=== PATIENT | male | born 1945 | race Caucasian/White ===

== ENCOUNTER 2024-03-02 05:57 | Day surgery (SDC) | payer OTHER ==
[2024-02-23 14:45] LABS: BILIRUBIN,URINE NEGATIVE (Neg); CLARITY,URINE CLEAR (Clear); COLOR,URINE YELLOW (Yellow); GLUCOSE, URINE NEGATIVE (Neg); KETONES,URINE NEGATIVE (Neg); LEUKOCYTE ESTERASE ,URINE NEGATIVE (Neg); NITRITES, URINE NEGATIVE (Neg); OCCULT BLOOD,URINE NEGATIVE (Neg); PH,URINE 5.5 (4.8-8.0); PROTEIN,URINE NEGATIVE (Neg); UROBILINOGEN,URINE 0.2 E.U/dL (0.2-1.0)
[2024-02-23 14:49] LABS: UA COLLECTION TYPE CLN CATCH MIDSTREAM
[2024-02-23 14:55] LABS: BASOPHILS % (AUTO) 0.4 % (0-1); EOSINOPHILS # (AUTO) 0.1 X10'3 (0-0.9); EOSINOPHILS % (AUTO) 1.3 % (0-6); LYMPHOCYTES # (AUTO) 0.9 X10'3 (1.1-4.8); LYMPHOCYTES % (AUTO) 10.9 % (21-51); MEAN CORPUSCULAR HEMOGLOBIN 23.8 PG (27.0-31.0); MEAN CORPUSCULAR HGB CONC 31.6 g/dL (33.0-36.5); MEAN CORPUSCULAR VOLUME 75.2 FL (78-98); MEAN PLATELET VOLUME 7.7 FL (7.4-10.4); MONOCYTES # (AUTO) 0.6 X10'3 (0-0.9); MONOCYTES % (AUTO) 7.7 % (2-12); NEUTROPHILS # (AUTO) 6.7 X10'3 (1.8-7.7); NEUTROPHILS % (AUTO) 79.7 % (42-75); PRE OP HEMATOCRIT 39.4 % (42.0-52.0); PRE OP HEMOGLOBIN 12.5 g/dL (14.0-17.9); PRE OP PLATELET COUNT 180 X10'3 (140-440); PRE OP WHITE BLOOD COUNT 8.4 10'3 (4.8-10.8); RED BLOOD COUNT 5.24 X10'6 (4.70-6.10); RED CELL DISTRIBUTION WIDTH 17.3 % (11.5-14.5)
[2024-02-23 15:06] LABS: ALBUMIN 3.8 G/DL (3.4-5.0); ALKALINE PHOSPHATASE 75 IU/L (46-116); BLOOD UREA NITROGEN 29 MG/DL (7-18); BUN/CREATININE RATIO 22.5 (10.0-20.0); CALCIUM 8.6 MG/DL (8.5-10.1); CHLORIDE 100 MMOL/L (99-107); CREATININE 1.29 MG/DL (0.60-1.10); PRE OP ALT 26 U/L (30-65); PRE OP ANION GAP 7 (8-16); PRE OP AST 21 U/L (10-37); PRE OP BILIRUB, TOTAL 0.4 MG/DL (0.0-1.0); PRE OP GLUCOSE 134 MG/DL (70-104); PRE OP POTASSIUM 4.4 MMOL/L (3.4-5.1); PRE OP SODIUM 135 MMOL/L (135-145); TOTAL CARBON DIOXIDE 27.7 MMOL/L (24-32); TOTAL PROTEIN 7.6 G/DL (6.4-8.2); eGFR 54 ML/MIN
[2024-03-01] MEDS: DOCUMENT DATE & TIME OF BETA-BLOCKER PO ONE (21:00)
[2024-03-02] VITALS (7 sets, daily range): BP systolic 127–162; BP diastolic 78–115; PULSE 59–102; RESP 12–25; TEMP 97.5; O2SAT 96–100
[~2024-03-02] VITALS: Ht 188 cm; Wt 95.3 kg
[2024-03-02] MEDS: cefazolin 2gm/D5W 100mL 100 ML IV ONE (05:30)
[~2024-03-02 05:57] MED LIST: ACET-1025 PO; CHOL200080 PO; FIBER PO; FINA5TAB11 PO; FLO0.4C PO; FLUT1BLS13 INH; LISI5TAB22 PO; MAGN400T39 PO; METO-384 PO; NAPR220T67 PO; OMEG1CAP46 PO; OMEP40CA21 PO; ROSU40TA22 PO; UNISON PO; albuterol 2.5 MG/3 ML nebule NEB ONE
[2024-03-02] MEDS ORDERED: morphine 4 MG/ML inj SYRINge IV PRN (07:20)
[2024-03-02] MEDS ORDERED: ringers solution, lacted 1,000 ML IV SCH (07:20)
[2024-03-02] MEDS ORDERED: ondansetron/PF 4mg/2ml inj IV PRN (07:20)
[2024-03-02] MEDS ORDERED: fentaNYL/PF 50MCG/1 ML 2ML syringe IV PRN ×2 (07:20)
[2024-03-02] MEDS ORDERED: morphine 2 MG/ML inj. syringe IV PRN (07:20)
[2024-03-02] MEDS ORDERED: hydrALAZINE 20mg/ml inj. IV PRN (07:20)
[2024-03-02] MEDS ORDERED: labetalol 20mg/4ml (5mg/ml) syringe IV PRN (07:20)
[2024-03-02] MEDS: famotidine 20mg tablet PO ONE (07:28)
[2024-03-02] MEDS: ringers solution, lacted 1,000 ML IV SCH (07:28)
[2024-03-02] MEDS ORDERED: desflurane 240ml liquid inh. IH ONE (08:13)
[2024-03-02] MEDS ORDERED: ROPIVAcaine 0.5% (5mg/ml) 30ml vial ONE (08:29)
[2024-03-02] MEDS ORDERED: propofol inj 20 ML IV ONE (08:29)
[2024-03-02] MEDS ORDERED: acetaminophen 1,000mg/100ml IV 100 ML IV ONE (08:29)
[2024-03-02] MEDS ORDERED: ondansetron/PF 4mg/2ml inj ONE (08:29)
[2024-03-02] MEDS ORDERED: LIDOcaine 2% (20mg/ml) 5ml vial ONE (08:29)
[2024-03-02] MEDS ORDERED: phenylephrine 10mg/ml inj. -priapism dosing ONE ×2 (08:47→09:10)
[2024-03-02] MEDS ORDERED: ePHEDrine 50MG/ML INJ. ONE (08:47)
[2024-03-02] MEDS: bacitracin 15gm ointment TP ONE (08:56)
[2024-03-02] MEDS ORDERED: fentaNYL/PF 50MCG/1 ML 2ML syringe ONE ×3 (09:11→10:52)
== END 2024-03-02 12:43 | disposition home or self-care (01) ==
LOC: PAS 05:57
PROVIDERS: ATTEND Podiatrist Foot & Ankle Surgery
DX: M20.5X1 Other deformities of toe(s) (acquired), right foot (principal); G89.18 Other acute postprocedural pain; I10 Essential (primary) hypertension; J44.9 Chronic obstructive pulmonary disease, unspecified; K21.9 Gastro-esophageal reflux disease without esophagitis; I20.9 Angina pectoris, unspecified; Z96.651 Presence of right artificial knee joint; Z98.890 Other specified postprocedural states
CPT/HCPCS: 28112; 28750; 36415; 64445; 64447; 73620; 80053; 81003; 82948; 85025; A6223; C1713; C1762; J0131; J0690; J1100; J2371; J2405; J2704; J2795; J3010; J3490; J7030; J7120; Z7506; Z7508; Z7512; 76000; A4215; A4618; A6449; A7000; J2370